=== PATIENT | male | born 1955 | race Caucasian/White ===

== ENCOUNTER 2020-06-22 17:30 | Emergency (ER) | payer OTHER ==
[~2020-06-22] VITALS: Ht 175.3 cm; Wt 90.8 kg
[~2020-06-22 17:30] MED LIST: ETOMIDATE 20 MG/10 ML ONE; PROPOFOL 10 MG/ML, 20ML ONE; VECURONIUM 10 MG ONE
--- NOTE | 2020-06-22 17:34 | NUR ---
PATIENT BIB EMS FOR SYNCOPAL EPISODE AT HOME. PATIENT COLLAPSED AND WAS ROLLING AROUND ON THE FLOOR WHEN EMS ARRIVED. COMPLAINS OF NUMNESS AND PAIN IN LLE, LOWER BACK AND NECK. PATIENT PLACED IN CCOLLAR ON ARRIVAL. PATIENT 100/54 ON ARRIVAL, IVF ADMINISTERED PATIENT CONTINUES TO BE HYPOTENSIVE NOW 85/56. SECOND LARGE BORE IV INITIATED, IVF RUNNING WIDE OPEN WITH A PRESSURE BAG. PATIENT GRIMACING IN PAIN, MOANING AND YELLING OUT. ED MD AT BEDSIDE. FEMORAL PULSES PALPABLE. PATIENT HR REMANINS 62. PATIENT DIAHPORETIC AND COOL AT THIS TIME. PAITENT CONTIUNES TO BE IN EXCURIATATING PAIN. ED MD WANTS TO INTUBATED AND START A CENTRAL LINE.
--- NOTE | 2020-06-22 17:35 | NUR ---
LATE ENTRY: PATIENT AOX4 ON ARRIVAL
[2020-06-22 17:51] LABS: BASOPHILS % (AUTO) 1 % (0-1); EOSINOPHILS % (AUTO) 2 % (1-7); LYMPHOCYTES % (AUTO) 36 % (22-44); MEAN CORPUSCULAR HEMOGLOBIN 33.1 pg (27.5-34.5); MEAN PLATELET VOLUME 8.5 fL (7.4-10.4); MONOCYTES % (AUTO) 10 % (2-9); NEUTROPHILS % (AUTO) 51 % (42-75); PLATELET COUNT 168 x10^3/uL (130-400); RED CELL DISTRIBUTION WIDTH 13.5 % (9.4-14.8)
--- NOTE | 2020-06-22 17:52 | NUR ---
PATIENT SON AT BEDSIDE, SUJATA [phone].
[2020-06-22 17:53] VITALS: BP 80/53
[2020-06-22 18:00] LABS: INTERNATIONAL NORMALIZED RATIO 1.03 (0.93-1.1); PROTHROMBIN TIME 10.9 Seconds (9.6-11.5)
[2020-06-22] MEDS ORDERED: PLEASE ENTER ALLERGIES MC SCH (18:00)
[2020-06-22] MEDS ORDERED: SODIUM CHLORIDE 0.9% 1,000ML IVBOLUS ONE (18:00)
[2020-06-22] MEDS ORDERED: SODIUM CHLORIDE FLUSH 10ML SYR IVF ONE (18:00)
[2020-06-22] MEDS ORDERED: ETOMIDATE 40 MG/20 ML IVPush ONE (18:00)
[2020-06-22] MEDS ORDERED: VECURONIUM 10 MG IVPush ONE (18:00)
[2020-06-22] MEDS ORDERED: MIDAZOLAM HCL 50 MG in SODIUM CHLORIDE 0.9% 40 ML IV PRN (18:00)
[2020-06-22] MEDS ORDERED: NOREPINEPHRINE 8 MG in SODIUM CHLORIDE 0.9% 242 ML IV PRN (18:00)
[2020-06-22] MEDS ORDERED: PLEASE ENTER HEIGHT AND WEIGHT MC SCH (18:00)
[2020-06-22 18:01] LABS: ALANINE AMINOTRANSFERASE 21 U/L (12-78); ANION GAP 15 mmol/L (5-15); CALCIUM 8.1 mg/dL (8.5-10.1); CHLORIDE 113 mmol/L (98-107); CREATININE 0.98 mg/dL (0.7-1.3); MD NO
--- NOTE | 2020-06-22 18:01 | NUR ---
PATIENT INTUBATED WITH 8.0 TUBE, 24 AT LIP.
[2020-06-22 18:05] LABS: ALKALINE PHOSPHATASE 80 U/L (45-117); BILIRUBIN,TOTAL 0.4 mg/dL (0.2-1.0); TOTAL PROTEIN 6.7 g/dL (6.4-8.2); TROPONIN I < 0.015 ng/mL (0.000-0.045)
--- NOTE | 2020-06-22 18:52 | NUR ---
LATE ENTRY: NG TUBE AND ODELL PLACED. PATIENT WENT INTO VFIB AT 182. ED MD AT BEDSIDE. IMMEDIATE DEFIB AND CPR STARTED. SEE CODE SHEET. ACLS FROM [id number]. , ROSA AT BEDSIDE AND BROTHER AHSAN AT BEDSIDE DURING CODE. MD PRONOUCED AT 1840. FAMILY AT [facility]. [employer] CALLED.
[2020-06-22] MEDS ORDERED: SODIUM BICARB 8.4%, 50ML SYRINGE ONE (18:54)
[2020-06-22] MEDS ORDERED: MAG SULFATE ONE (18:54)
[2020-06-22] MEDS ORDERED: AMIODARONE 50 MG/ML, 3ML ONE (18:54)
[2020-06-22] MEDS ORDERED: EPINEPHRINE SYRINGE 0.1 MG/ML, 10ML ONE (18:54)
[2020-06-22] MEDS ORDERED: CALCIUM CHLORIDE 13.6 MEQ/10 ML ONE (18:54)
--- NOTE | 2020-06-22 19:09 | NUR ---
LATE ENTRY: PATIENT RECIEVED 4 ZOFRAN AND 200 NS [employer]LE[employer]
--- NOTE | 2020-06-22 19:48 | NUR ---
[facility] [employer] IS COMING TO SPEAK WITH FAMILY AT THEIR REQUEST. CAMI, FATHER GILMAR CALLED AND SAID HE WOULD COME MEET WITH THE FAMILY AT THE BEDSIDE. FAMILY NOTIFIED.
[2020-06-23] MEDS ORDERED: EPINEPHRINE SYRINGE 0.1 MG/ML, 10ML ONE (11:22)
== END 2020-06-22 21:28 | disposition expired ==
LOC: ED 17:45
DX: I49.01 Ventricular fibrillation (principal); I95.0 Idiopathic hypotension; M54.2 Cervicalgia; R53.1 Weakness; I49.3 Ventricular premature depolarization; R00.0 Tachycardia, unspecified; M54.5 Low back pain; F17.210 Nicotine dependence, cigarettes, uncomplicated
CPT/HCPCS: 31500; 36415; 80053; 82962; 84484; 85025; 85610; 85730; 92950; 93005; 96365; 99291; J0282; J2250; J2704; J3475; J7030; 94002; 96361